=== PATIENT | male | born 1950 | race Caucasian/White ===

== ENCOUNTER 2019-01-02 19:43 | Inpatient (IN) | payer MEDICARE, MEDICAID ==
[~2019-01-02 19:43] MED LIST: ISOVUE-370 76%-LOCM 1 ML ONE
[2019-01-02 20:35] LABS: Hemoglobin 15.6 g/dL (14.0-18.0); Mean Corpuscular HGB CONC 33.6 g/dL (32.0-36.0); Mean Corpuscular Hemoglobin 30.8 pg (27.0-31.0); Mean Corpuscular Volume 91.6 fL (78.0-98.0); Mean Platelet Volume 9.2 fL (7.4-10.4); Platelet Count 261 thou/uL (130-400); RBC Distribution Width 12.5 % (11.5-14.5); Red Blood Cell (RBC) Count 5.05 mill/uL (4.70-6.10); White Blood Cell (WBC) Count 21.4 thou/uL (4.8-10.8)
[2019-01-02 20:43] LABS: ALT (SGPT) 31 U/L (8-55); AST (SGOT) 43 U/L (5-34); Albumin 3.7 g/dL (3.4-4.8); Alkaline Phosphatase 79 U/L (40-150); Anion Gap 17 mmol/L (10-20); BUN (Urea Nitrogen) 7 mg/dL (8.4-25.7); Bilirubin, Total 0.8 mg/dL (0.2-1.2); Calc. Creatinine Clearance 0 mL/min (70-130); Calcium 10.2 mg/dL (7.8-10.44); Carbon Dioxide 26 mmol/L (23-31); Chloride 95 mmol/L (98-107); Estimated GFR-MDRD Greater than 90; Globulin 3.7 g/dL (2.4-3.5); Glucose 132 mg/dL (80-115); Lipase 36 U/L (8-78); Potassium 3.2 mmol/L (3.5-5.1); Protein, Total 7.4 g/dL (5.8-8.1); Sodium 135 mmol/L (136-145)
[2019-01-02 20:44] LABS: Acetaminophen Less than 6.0 mcg/mL (10.0-30.0); Alcohol Less than 10 mg/dL (Less than 10); CK (CPK) 18 U/L (30-200); Magnesium 1.6 mg/dL (1.6-2.6); Salicylate Less than 8.0 mg/dL (15.0-30.0)
[2019-01-02 20:45] LABS: Band 5 % (5-11); Lymphocytes 13 % (21-51); MDiff Complete? YES; Monocytes 6 % (0-10); Neutrophil 76 % (42-75); Platelet Morphology Comment Appears Adequate
[2019-01-02 21:05] LABS: CKMB 0.6 ng/mL (0-6.6)
--- NOTE | 2019-01-02 21:27 | CT ---
CT angiogram of the head CT angiogram of the neck: 01/02/2019 COMPARISON: None HISTORY: Altered mental status TECHNIQUE: Axial CT imaging at 5 mm intervals from vertex through skull base without contrast. Axial CT imaging then obtained with IV contrast at 1.25 mm intervals from the vertex through the lung apices with IV contrast using CT angiogram protocol with coronal and sagittal 3-D reformatted imaging FINDINGS: Noncontrast enhanced head CT demonstrates no intracranial hemorrhage, midline shift, mass e ffect, or ventricular enlargement. The visualized paranasal sinuses and mastoid air cells demonstrate no acute findings. Old medial orbital wall fracture noted on the left. The visualized lung apices appear unremarkable. There is atherosclerotic calcification of the aortic arch. There is extensive atherosclerotic calcifi cation of the left subclavian artery. There is mild/moderate stenosis at the origin of the left subclavian artery and at the origin of bilateral vertebral arteries, left greater than right. There i s evidence for a calcification at the origin of the innominate artery, right subclavian artery, and right common carotid artery with no associated hemodynamically significant stenosis. Origin of the le ft common carotid artery appears unremarkable. The common carotid artery, external carotid artery, and internal carotid artery are patent bilaterall y. There is prominent partially calcified plaque involving the proximal left internal carotid artery. On the basis of NASCET criteria, there is no hemodynamically significant stenosis seen involving the internal carotid artery or common carotid artery on the left. Scattered calcified plaque noted within the right common carotid artery. On the basis of NASCET criteria there is no hemodynamically significant stenosis involving the right common carotid artery, external carotid artery, or internal carotid artery. There is calcified plaque within the distal vertebral artery bilaterally. There is multifocal moderat e stenosis involving the distal most aspect of the right vertebral artery. Bilateral vertebral arteries are patent. The retroantral fat and parapharyngeal fat appears clear bilaterally. The parotid and submandibular g lands are unremarkable bilaterally. Limited assessment of the aerodigestive tract appears unremarkable. No lymphadenopathy is evident within the neck. The basilar artery is patent and demonstrates multiple areas of mild stenosis. Branches of the basila r artery are patent. Scattered areas of stenosis noted within bilateral posterior cerebral arteries. There is no evidence for saccular aneurysm or vascular occlusion involving the posterior ci rculation. There is significant atherosclerotic calcification of the cavernous carotid arteries bilaterally. The M1 segment is patent bilaterally as is the MCA bifurcation. The A1 segment and distal GI branches appear patent. Distal MCA branches appear patent as well. No saccular aneurysm or central arterial oc clusion is seen involving the anterior circulation. Review of the osseous structures of the head and neck demonstrate scattered degenerative changes with in the cervical spine including multilevel disc space narrowing and multilevel facet hypertrophy. No worrisome lytic or blastic bone lesions. IMPRESSION: No intracranial hemorrhage. Atherosclerotic disease within the head and neck as detailed above.
[2019-01-02 22:33] LABS: Bilirubin Negative (Negative); Blood, Urine Negative (Negative); Clarity Clear (Clear); Glucose, Urine (Dipstick) Normal (Negative); Leukocyte Negative Leu/uL (Negative); Nitrite Negative (Negative); Protein, Urine (Dipstick) Negative (Neg-Trace); Urobilinogen Normal mg/dL (Less than 2)
[2019-01-02 22:34] LABS: Amphetamine Not Detected (NotDetected); Barbiturates Screen Not Detected (NotDetected); Benzodiazepine Screen Not Detected (NotDetected); Cocaine Metabolite Screen Not Detected (NotDetected); Medtox Reader # READER 4; Methadone Not Detected (NotDetected); Methamphetamine Not Detected (NotDetected); Opiate Screen Not Detected (NotDetected); Phencyclidine (PCP) Not Detected (NotDetected); THC/Cannabinoid Screen Not Detected (NotDetected); Tricyclic Screen Not Detected (NotDetected)
[2019-01-02 22:35] LABS: Medtox Control Line Valid? VALID (VALID); Oxycodone Screen Not Detected (NotDetected)
[2019-01-02] MEDS ORDERED: cefTRIAXone\\ROCEPHIN 2 GM VIAL ONE (23:07)
[2019-01-02] MEDS ORDERED: Aspirin Chewable 81 MG TAB ONE ×2 (23:29)
[2019-01-02] MEDS ORDERED: Vancomycin HCl 1.5 GM in Sodium Chloride 0.9% 250 ML 300 ML IVPB SCH (23:45)
[2019-01-02 23:53] LABS: Troponin I 0.022 ng/mL (< 0.028)
[2019-01-03] MEDS ORDERED: Acetaminophen 325 MG TAB PO PRN (01:31)
[2019-01-03 02:37] LABS: Troponin I 0.023 ng/mL (< 0.028)
[2019-01-03] MEDS ORDERED: traMADol HCl 50 MG TAB PO PRN (07:48)
[2019-01-03] MEDS ORDERED: HYDROcodone/Acetaminophen 5/325 mg Tablet PO PRN (07:50)
[2019-01-03] MEDS ORDERED: Ondansetron PF 4 MG/2 ML Vial IVP PRN (07:50)
[2019-01-03] MEDS ORDERED: Calcium Carbonate 500 MG ChewTAB PO PRN (07:50)
[2019-01-03] MEDS ORDERED: Ondansetron ODT 4 MG TAB PO PRN (07:50)
[2019-01-03] MEDS ORDERED: HYDROcodone/Acetaminophen 7.5/325 mg Tablet PO PRN (07:50)
[2019-01-03] MEDS ORDERED: Docusate 100 MG CAP PO PRN (08:00)
[2019-01-03] MEDS ORDERED: diphenhydrAMINE 25 MG CAP PO PRN (08:00)
[2019-01-03] MEDS ORDERED: Benzonatate 100 MG CAP PO PRN (08:00)
[2019-01-03] MEDS: Famotidine 20 MG TAB PO SCH ×2 (08:43→20:20)
[2019-01-03] MEDS: Aspirin 81 mg Enteric Coated Tablet PO SCH (08:43)
[2019-01-03] MEDS: Montelukast Sodium 10 mg Tablet PO SCH (08:43)
[2019-01-03] MEDS: Lisinopril 20 MG TAB PO SCH (08:43)
[2019-01-03] MEDS ORDERED: Famotidine 20 MG TAB PO SCH (09:00)
[2019-01-03] MEDS ORDERED: Gabapentin 300 MG CAP PO SCH (09:00)
[2019-01-03] MEDS ORDERED: cloNIDine 0.2mg/24 Hour PATCH TD SCH (09:00)
--- NOTE | 2019-01-03 09:17 | RAD ---
EXAM: Portable chest PROVIDED CLINICAL HISTORY: Chest pain COMPARISON: 07/18/2007 FINDINGS: Cardiac and mediastinal silhouette is unchanged in appearance. Median sternotomy changes and vascular calcification are seen. No focal consolidation, pleural fluid or pneumothorax evident. IMPRESSION: No evidence for an acute cardiopulmonary process.
--- NOTE | 2019-01-03 09:41 | CON ---
DATE OF CONSULTATION: 01/03/2019 CONSULTING PHYSICIAN: Hospitalist Service. IMPRESSION: The patient appears to have dementia without any evidence of a delirium. PLAN: 1. B1, B6, and B12 levels. 2. CT scan of the brain. 3. Aricept 5 mg per day. 4. Determine whether penitentiary placement is necessary. HISTORY OF PRESENT ILLNESS: Mr. Milligan is a 68-year-old man, who was brought to the emergency room last night by his family. In reading the ER records, there was reported complaints of headaches, abdominal pain, mental status changes for over a month. His workup in the ER included a CT angiogram, which showed some scattered areas of mild stenosis, but nothing significant. His white count was 21.4 with 76 neutrophils and 5% bands. He is not febrile. He was admitted for further evaluation. There is no family here at this point to give any history and questioning him. He is without any complaints of headache, chest pain, abdominal pain, or any other ongoing problem. He was not aware that he was in the hospital. He thought he was in some sort of courthouse. Did not know the month or year, did not know who the president was. PAST HISTORY: Otherwise, unknown. FAMILY HISTORY: Unknown. ALLERGIES: NONE REPORTED. SOCIAL HISTORY: No reported alcohol use. REVIEW OF SYSTEMS: Ten-system review of systems by the patient's report is unremarkable. PHYSICAL EXAMINATION: VITAL SIGNS: Blood pressure 195/88, pulse 75, respirations 16, and temperature 98.2. HEENT: Pupils are equal. Conjunctivae are clear. Oropharynx clear. Cranium; normocephalic and atraumatic. NECK: Supple. No lymphadenopathy. EXTREMITIES: There is some few minor scratches and bruising, but nothing remarkable. NEUROLOGIC: He is alert and cooperative. He follows commands appropriately. His speech is fluent and clear. There are no cranial nerve deficits. He had good strength bilaterally. There is no fix or drift. There is no tremor or asterixis. Sensation was intact to touch. No abnormal movements are seen. Gait is not tested. SUMMARY: This is a 68-year-old man, who appears only oriented to person. He has no evidence of delirium. I suspect that this is primarily a dementia. I suspect the family may be looking for placement and that was the reason behind them dropping him off in the emergency room last night. His workup thus far has been unremarkable. Job ID: [id number]
[2019-01-03] MEDS: Multivitamins, Adult 10 ML, Folic Acid 1 MG, Thiamine HCl 100 MG in Dextrose 5 %-0.45 %... IV SCH (10:15)
[2019-01-03] MEDS ORDERED: Dextrose 5% in Water 1,000 ML IV PRN (10:21)
[2019-01-03] MEDS ORDERED: Dextrose 50% Abboject 50 ML SYRINGE SLOW IVP PRN (10:21)
[2019-01-03] MEDS ORDERED: HumaLOG 300 UNITS/3 ML VIAL SC PRN (10:21)
--- NOTE | 2019-01-03 10:57 | HP ---
CHIEF COMPLAINT: Altered mental status. HISTORY OF PRESENT ILLNESS: Mr. Milligan is a 68-year-old gentleman with past medical history of diabetes, hypertension, hyperlipidemia, and alcohol use, who presents with altered mental status. At the time of my interview, the patient knows his name, he knows that he lives in [place], [place], however, he is not sure of any other details of his medical history or accurately portray what has been happening in the past several months. The patient currently tells me that he believes he is in the [facility], he believes I am the [place] despite dripping dressed in white coat and explicitly telling him that I am his physician. The patient states that the year is 1914, though he does admit that maybe inaccurate. The patient states that he used to drink a lot of beer, though he states he does not drink beer anymore. Previous report was that the patient quit drinking 1 month ago. The patient tells me that he believes he quit drinking 2 or 3 years ago. The patient states that he used to smoke cigarettes, though he quit that also. The patient's short-term recall and memory is very diminished and is unable to recall simple fax like again stating that I am his physician and then less than 5 minutes later, asking him where he is and what role I have and he states that I am the [place] of the correction. No family available at bedside for additional history at this time. PAST MEDICAL HISTORY: 1. Diabetes mellitus. 2. Hypertension. 3. Hyperlipidemia. 4. EtOH use. REVIEW OF SYSTEMS: A 10-point review of systems was conducted and negative aside from what mentioned in history of present illness. MEDICATIONS: 1. Tramadol 50 mg one tablet p.o. t.i.d. p.r.n. pain. 2. Metformin 500 mg one tablet p.o. b.i.d. 3. Glipizide 10 mg one tablet p.o. daily. 4. Clonidine transdermal patch 0.2 mg transdermal q.7 days. 5. Ranitidine 150 mg one tablet p.o. b.i.d. 6. Singulair 10 mg one tablet p.o. daily. 7. Lisinopril 20 mg one tablet p.o. daily. 8. Gabapentin 600 mg one tablet p.o. b.i.d. 9. Atorvastatin 20 mg one tablet p.o. daily. ALLERGIES: NO KNOWN DRUG ALLERGIES. PHYSICAL EXAMINATION: VITAL SIGNS: Temperature 98.0, pulse 63, blood pressure 207/94, respirations 14, and O2 saturation 95% on room air. HEENT: Head is normocephalic and atraumatic. Pupils are equally round and reactive to light and accommodation. There is no appreciated erythema or exudates on the tonsils. GENERAL APPEARANCE: The patient is well developed. He is cooperative. The patient is in no acute cardiopulmonary distress. CARDIAC: S1 and S2 present. No appreciated murmurs, rubs, or gallops. There is no peripheral edema. EXTREMITIES: Warm and well perfused. LUNGS: Clear to auscultation bilaterally without appreciated wheezes, rales, or rhonchi. ABDOMEN: Soft, nontender, and nondistended without focal guarding or rigidity. No appreciated hepatosplenomegaly. No abdominal bruit. MUSCULOSKELETAL: Adequate alignment of the spine. Range of motion in the spine and extremities are grossly intact. There is no joint erythema or tenderness. BACK: Examination of the spine reveals no obvious deformity. Spinal symmetry is present. There is mild tenderness to palpation in the lumbar spine. EXTREMITIES: No significant deformity or joint abnormality. No lower extremity edema. No upper extremity edema. Peripheral pulses are intact and symmetric. NEUROLOGIC: Cranial nerves II through XII are grossly intact. Strength and sensation are symmetric and intact throughout. Cerebellar testing was deferred. SKIN: Skin is normal color, texture, and turgor. There are no appreciated lesions, rashes, or eruptions. PSYCHIATRIC: The patient is alert to self and knows that he is in [place]. The patient does not know, where he currently is. The patient does not know the situation. The patient's 5-minute recall is absent. The patient denies auditory or visual hallucinations. LABORATORY DATA: WBC 21.4, RBC 5.05, hemoglobin 15.6, hematocrit 46.2, MCV 91.6, and platelets 261. Sodium 135, potassium 3.2, chloride 95, carbon dioxide 26, anion gap 17, BUN 7, creatinine 0.82, estimated GFR greater than 90, glucose 132, calcium 10.2, magnesium 1.6, total bilirubin 0.8, AST 43, ALT 31, and alkaline phosphatase 79. Creatine kinase 18. Troponin 0.022. Serum total protein 7.4, albumin 3.7, globulin 3.7, and lipase 36. TSH 1.2. Urinalysis; urine color light yellow, urine clarity clear, urine pH 5.5, urine specific gravity 1.011, urine protein negative, urine ketones 20, urine blood negative, urine nitrite negative, urine bilirubin negative, urine urobilinogen normal, urine leukocyte esterase negative. Salicylates less than 8.0. Urine opiates negative. Urine oxycodone negative. Urine methadone negative. Urine propoxyphene negative. Acetaminophen less than 6.0. Urine barbiturate screen negative. Urine tricyclic screen negative. Urine PCP negative. Urine amphetamines negative. Urine methamphetamines negative. Urine benzodiazepines negative. Urine cocaine negative. Urine cannabinoids negative. Plasma alcohol less than 10. RADIOGRAPHIC IMAGIN. CT [place] angio with contrast; impression, no intracranial hemorrhage. Atherosclerotic disease within the head and neck as detailed above - please see full report for full details. 2. Chest x-ray; impression, no evidence of acute cardiopulmonary process. ASSESSMENT AND PLAN: 1. Altered mental status with acute confusion/delirium. The patient had a CT of the head that was negative for acute intracranial process. Neurology consultation requested for further recommendations. The patient will have MRI of the brain, echocardiogram, and further metabolic workup. A CVA may present with altered mental status. However, the patient does lack focal neurologic deficits on physical exam. With the patient's history of alcohol use, possibility for Wernicke-Korsakoff syndrome is present. We will place the patient on a banana bag. The patient will need vitamin replacement. We will attempt to further contact family. The patient states that his daughter helps take care of him. Report of the patient's alcohol cessation greater than 1 month ago. Alcohol withdrawal complications are less likely at this time being greater than 1 month since any alcohol was consumed. 2. Leukocytosis - there is no obvious source of infection at this time. The patient has a clean chest x-ray without focal pneumonia. Urinalysis is negative for urinary tract infection. There are no obvious skin lesions or cellulitis. The patient did receive broad-spectrum antibiotics in the emergency department. The patient had blood cultures. As there is no obvious source of infection, we will hold further antibiotics at this time and further assess as the patient progresses. The patient is nontoxic and does not appear septic at this time and leukocytosis may be stress reactive. 3. Malignant hypertension with blood pressure of 207 systolic on arrival. The patient started on home medications including clonidine patch and amlodipine. P.r.n. medications added to help control blood pressure. We will adjust blood pressure medications daily until hypertension is normalized. 4. Diabetes mellitus. We will treat with insulin sliding scale and hold oral diabetic medications at this time as the patient has received contrast. He will not have metformin while inpatient for 48 hours. 5. Hyperlipidemia. 6. History of alcohol use. 7. Neuropathic pain. Job ID: [id number]
--- NOTE | 2019-01-03 12:11 | MRI ---
EXAM: MRI Brain WO Con PROVIDED CLINICAL HISTORY: Altered mental status COMPARISON: 12/23/2001 FINDINGS: Evaluation is limited by patient motion. The ventricular system appears normal in size and morphology . There is no evidence for intracranial hemorrhage. Linear hypointensity on the gradient sequence in the region of the left temporoparietal eller matter adjacent to the occipital horn of the lateral v entricle presumably reflects laminar necrosis. Conspicuous chronic microvascular ischemic changes are seen involving the cerebral white matter. The flow voids within the major intracranial vessels ap pear grossly preserved. There is no evidence for restricted diffusion to suggest recent infarction. The extracranial soft tissues and calvarial marrow signal. No significant abnormality. IMPRESSION: No evidence for an acute intracranial abnormality.
[2019-01-03] MEDS: Atorvastatin Calcium 20 MG TAB PO SCH (20:20)
[2019-01-04] MEDS ORDERED: diphenhydrAMINE 50 MG/ML VIAL IVP SCH (01:20)
[2019-01-04] MEDS ORDERED: Lorazepam 2 MG/ML VIAL SLOW IVP SCH (01:20)
[2019-01-04] MEDS ORDERED: diphenhydrAMINE 50 MG/ML VIAL ONE (01:43)
[2019-01-04] MEDS ORDERED: Lorazepam 2 MG/ML VIAL ONE (01:43)
[2019-01-04 05:25] LABS: #Eosinphils 0.2 thou/uL (0.0-0.7); #Lymphocytes 2.9 thou/uL (1.20-3.40); #Monocytes 1.6 thou/uL (0.11-0.59); #Neutrophils 11.5 thou/uL (1.40-6.50); %Basophils 0.3 % (0.0-1.0); %Lymphocytes 17.7 % (21.0-51.0); %Monocytes 9.7 % (0.0-10.0); %Neutrophils 71.3 % (42.0-75.0); Hemoglobin 14.3 g/dL (14.0-18.0); Mean Corpuscular HGB CONC 33.9 g/dL (32.0-36.0); Mean Corpuscular Hemoglobin 30.8 pg (27.0-31.0); Mean Corpuscular Volume 90.8 fL (78.0-98.0); Mean Platelet Volume 9.1 fL (7.4-10.4); Platelet Count 241 thou/uL (130-400); RBC Distribution Width 12.4 % (11.5-14.5); Red Blood Cell (RBC) Count 4.63 mill/uL (4.70-6.10); White Blood Cell (WBC) Count 16.1 thou/uL (4.8-10.8)
[2019-01-04 05:27] LABS: Anion Gap 13 mmol/L (10-20); BUN (Urea Nitrogen) 6 mg/dL (8.4-25.7); Calc. Creatinine Clearance 116 mL/min (70-130); Calcium 9.2 mg/dL (7.8-10.44); Carbon Dioxide 29 mmol/L (23-31); Chloride 98 mmol/L (98-107); Estimated GFR-MDRD Greater than 90; Glucose 156 mg/dL (80-115); Sodium 137 mmol/L (136-145)
[2019-01-04 05:35] LABS: Potassium 2.7 mmol/L (3.5-5.1)
[2019-01-04] MEDS ORDERED: Ziprasidone 20 MG CAP ONE (06:12)
[2019-01-04] MEDS ORDERED: Ziprasidone 20 MG VIAL ONE (06:13)
[2019-01-04] MEDS ORDERED: Sterile Water 10 ML VIAL FS PRN (06:17)
[2019-01-04] MEDS ORDERED: Ziprasidone 20 MG VIAL IM SCH (06:30)
[2019-01-04] MEDS ORDERED: Potassium Chloride 40 MEQ in Sodium Chloride 0.9% 250 ML 250 ML IVPB SCH (06:30)
[2019-01-04] MEDS: Lisinopril 20 MG TAB PO SCH (08:37)
[2019-01-04] MEDS: Famotidine 20 MG TAB PO SCH ×2 (08:37→20:51)
[2019-01-04] MEDS: Montelukast Sodium 10 mg Tablet PO SCH (08:38)
[2019-01-04] MEDS: Aspirin 81 mg Enteric Coated Tablet PO SCH (08:38)
[2019-01-04] MEDS ORDERED: Potassium Chloride 20 MEQ TAB PO SCH (10:00)
--- NOTE | 2019-01-04 10:54 | CT ---
Head CT without contrast 01/04/2019: COMPARISON: 07/31/2012 HISTORY: Altered mental status TECHNIQUE: Axial CT imaging at 5 mm intervals from vertex through skull base without contrast FINDINGS: The imaged paranasal sinuses and mastoid air cells demonstrate no acute findings. There is atherosclerotic calcification of the cavernous carotid arteries and distal vertebral arterie s. No acute osseous abnormality is noted. There is mild diffuse cerebral volume loss. There is periventricular white matter hypodensity, eviden ce of small vessel disease. 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 IMPRESSION: Stable head CT as detailed above. No intracranial hemorrhage.
[2019-01-04] MEDS: HumaLOG 300 UNITS/3 ML VIAL SC PRN ×2 (11:18→18:07)
[2019-01-04] MEDS: Multivitamins, Adult 10 ML, Folic Acid 1 MG, Thiamine HCl 100 MG in Dextrose 5 %-0.45 %... IV SCH (11:19)
[2019-01-04] MEDS ORDERED: Acetaminophen 325 MG TAB PO PRN (11:57)
[2019-01-04] MEDS ORDERED: cefTRIAXone Sodium 2 MG in Syringe 0 ML IVPB SCH (12:30)
[2019-01-04] MEDS ORDERED: cloNIDine 0.3mg/24 Hour PATCH TD SCH (13:00)
[2019-01-04 14:13] VITALS: BMI 23.4
[2019-01-04] MEDS: 1/2 NS w/KCL 20 mEq 1,000 ML IV SCH (14:18)
--- NOTE | 2019-01-04 15:11 | PDOC.HOSPP ---
- Subjective Subjective: Seen and examined. Patient is only oriented to self. He believes we're of the [place]. I believe the patient is confabulation secondary to Wernicke Korsakoff syndrome. No alcohol in greater than 1 month. He does not know the year. He does on the situation. Patient remains agitated and impulsive frequently trying to get out of bed. Patient has required symptomatic medications to keep him calm. I had a long discussion with the patient's daughter over the phone, time was given to ask questions, many questions are asked and all questions were answered in detail. Patient will need long-term placement. Patient does not have easily identifiable source of infection. Initial WBC count of 21,000 has down trended to 16,000 without antibiotic therapy. However he does now have a low-grade fever of 100.1. I will start the patient on empiric antibiotic coverage. Will repeat urine analysis. No obvious skin lesions. Blood cultures and urine cultures are negative for growth at this time. - Objective Vital Signs & Weight: Vital Signs (12 hours) Temp Pulse Pulse Pulse Pulse Resp BP 01/04/19 12:04 100.1 F H 92 16 01/04/19 10:35 104 H 107 H 98 01/04/19 08:43 97 94 01/04/19 08:37 162/93 H 01/04/19 08:00 99.3 F 96 18 01/04/19 04:00 97.3 F L 72 16 BP BP BP BP Pulse Ox 01/04/19 12:04 177/87 H 94 L 01/04/19 10:35 210/99 H 132/90 187/92 H 01/04/19 08:43 162/93 H 214/105 H 01/04/19 08:37 01/04/19 08:00 162/93 H 98 01/04/19 04:00 167/82 H 92 L Weight Admit Weight 181 lb Weight 172 lb 11.2 oz I&O: 01/03/19 01/04/19 01/05/19 06:59 06:59 06:59 Intake Total 1367 300 Balance 1367 300 Result Diagrams: 01/04/19 04:56 01/04/19 04:56 Additional Labs: Accuchecks 01/04/19 01/04/19 01/03/19 10:44 05:55 20:28 POC Glucose 191 H 157 H 162 H 01/03/19 16:35 POC Glucose 191 H Radiology Reviewed by me: Yes (MRI brain) Hospitalist ROS - Review of Systems All other systems reviewed; all pertinent +/- noted in HPI/Subj - Medication Medications: Active Medications Generic Name Dose Route Start Last Admin Trade Name Freq PRN Reason Stop Dose Admin Acetaminophen 325 mg 01/04/19 11:57 01/04/19 12:49 Tylenol PO 325 mg Q4H PRN Administration Headache/Fever or Pain Aspirin 81 mg 01/03/19 09:00 01/04/19 08:38 Ecotrin PO 81 mg DAILY ALEJANDRO Administration Atorvastatin Calcium 20 mg 01/03/19 21:00 01/03/19 20:20 Lipitor PO 20 mg HS ALEJANDRO Administration Clonidine 0.3 mg 01/04/19 13:00 01/04/19 12:50 [id number]-Tlr-7 TD 0.3 mg Q7D@1300 ALEJANDRO Administration Famotidine 20 mg 01/03/19 09:00 01/04/19 08:37 Pepcid PO 20 mg BID ALEJANDRO Administration Potassium Chloride/Sodium Chloride 1,000 mls @ 50 mls/hr 01/04/19 12:30 01/04 14:18 1/2 Ns W/Kcl 20 Meq IV 1,000 mls .Q20H ALEJANDRO Administration Insulin Human Lispro 0 units 01/03/19 10:21 01/04/19 11:18 Humalog SC 2 unit .MILD SLIDING SCALE PRN Administration Mild Correctional Scale Lisinopril 20 mg 01/03/19 09:00 01/04/19 08:37 Zestril PO 20 mg DAILY ALEJANDRO Administration Montelukast Sodium 10 mg 01/03/19 09:00 01/04/19 08:38 Singulair PO 10 mg DAILY ALEJANDRO Administration - Exam General Appearance: NAD Eye: PERRL, anicteric sclera ENT: no oropharyngeal lesions, moist mucosa Neck: supple, symmetric, no lymphadenopathy Heart: no murmur, no gallops, no rubs Respiratory: no wheezes, no rales, no ronchi Gastrointestinal: soft, non-tender, non-distended, normal bowel sounds, no guarding Extremities: no edema Skin: no lesions, no rashes Neurological: cranial nerve grossly intact, normal sensation to touch Musculoskeletal: generalized weakness Psychiatric: oriented to person. 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 Patient with past history of greater than four beers per day. Folic acid thiamine had banana bag on admission replace electrolytes as needed Patient with low-grade fever, WBC count down trending without continuation of antibiotics. We will start empiric antibiotics to see if there is any improvement to patient's mental status. There is no obvious source of infection at this time with a negative urine analysis, clear chest x-ray. Urine and blood cultures are negative for growth to date. Long-term placement will likely be needed Case discussed at length with patient's daughter who is happy with plan of care. Patient's daughter is primary decision-maker and states that her father told her he would like to be a do not resuscitate and do not intubate, we will honor patient's families wishes and the patient's wishes at this time and change categorization status to do not resuscitate and do not intubate.
[2019-01-04] MEDS: Haloperidol Lactate 5 MG/ML VIAL IM PRN (15:28)
[2019-01-04 19:09] LABS: Bilirubin Negative (Negative); Blood, Urine Negative (Negative); Clarity Clear (Clear); Glucose, Urine (Dipstick) Normal (Negative); Leukocyte Negative Leu/uL (Negative); Mucous/LPF Rare LPF (<2+); Nitrite Negative (Negative); Protein, Urine (Dipstick) Negative (Neg-Trace); RBC/HPF 0-3 HPF (0-3); Squamous Epithelial 0-3 HPF (0-3); Urobilinogen Normal mg/dL (Less than 2); WBC/HPF 0-3 HPF (0-3)
[2019-01-04 19:22] LABS: Bacteria/HPF None Seen HPF (None Seen)
[2019-01-04 19:23] LABS: Urine Culture Reflex No No
[2019-01-04] MEDS: Donepezil HCl 5 MG TAB PO SCH (20:51)
[2019-01-04] MEDS: Atorvastatin Calcium 20 MG TAB PO SCH (20:51)
[2019-01-04] MEDS: hydrALAZINE 20 MG/ML VIAL SLOW IVP PRN (22:20)
[2019-01-05] MEDS: Labetalol HCl 100 MG/20 ML VIAL SLOW IVP PRN ×4 (00:19→20:11)
[2019-01-05] MEDS ORDERED: Sterile Water 10 ML VIAL FS PRN (01:21)
[2019-01-05] MEDS ORDERED: Ziprasidone 20 MG VIAL IM SCH (01:30)
[2019-01-05] MEDS: HumaLOG 300 UNITS/3 ML VIAL SC PRN ×3 (07:46→17:21)
[2019-01-05] MEDS: Thiamine 100 MG TAB PO SCH (08:44)
[2019-01-05] MEDS: Montelukast Sodium 10 mg Tablet PO SCH (08:44)
[2019-01-05] MEDS: Carvedilol 3.125 MG TAB PO SCH ×2 (08:44→17:15)
[2019-01-05] MEDS: Folic Acid 1 MG TAB PO SCH (08:44)
[2019-01-05] MEDS: Lisinopril 20 MG TAB PO SCH (08:44)
[2019-01-05] MEDS: Famotidine 20 MG TAB PO SCH ×2 (08:44→20:10)
[2019-01-05] MEDS: Aspirin 81 mg Enteric Coated Tablet PO SCH (08:44)
[2019-01-05] MEDS: hydrALAZINE 20 MG/ML VIAL SLOW IVP PRN (10:03)
[2019-01-05] MEDS: 1/2 NS w/KCL 20 mEq 1,000 ML IV SCH (10:05)
[2019-01-05] MEDS ORDERED: guaiFENesin/DM ER PO PRN (11:13)
--- NOTE | 2019-01-05 11:16 | PDOC.HOSPP ---
- Subjective Subjective: Patient seen and examined. Patient does seem moral alert and awake today. Patient knows his name. Today patient thinks he we are at "[place] in the [facility]". Patient does not know the year. Patient does not know the situation. Patient agitated and impulsive trying to get out of bed frequently. Blood pressure remains elevated, adding medications and daily adjustments as needed. Patient still requiring symptomatic medications for agitation and a sitter at bedside. Increase nighttime sedating medications to keep the patient calm. Family at bedside, questions were asked, all answered in detail. - Objective Vital Signs & Weight: Vital Signs (12 hours) Temp Pulse Resp BP BP Pulse Ox 01/05/19 10:03 85 210/101 H 01/05/19 08:44 186/97 H 01/05/19 08:40 99.6 F 99 18 186/97 H 94 L 01/05/19 06:31 72 181/91 H 01/05/19 05:24 90 189/92 H 01/05/19 03:53 99.2 F 98 18 200/98 H 91 L 01/05/19 00:19 107 H 190/100 H 01/05/19 00:00 99.4 F 107 H 20 190/100 H 96 Weight Admit Weight 181 lb Weight 172 lb 11.2 oz I&O: 01/04/19 01/05/19 01/06/19 06:59 06:59 06:59 Intake Total 1367 2870 Output Total 750 Balance 1367 2120 Result Diagrams: 01/04/19 04:56 01/04/19 04:56 Additional Labs: Accuchecks 01/05/19 01/04/19 01/04/19 06:27 19:54 16:46 POC Glucose 184 H 141 H 178 H Radiology Reviewed by me: Yes (Echocardiogram) Hospitalist ROS - Review of Systems All other systems reviewed; all pertinent +/- noted in HPI/Subj - Medication Medications: Active Medications Generic Name Dose Route Start Last Admin Trade Name Freq PRN Reason Stop Dose Admin Acetaminophen 325 mg 01/04/19 11:57 01/04/19 12:49 Tylenol PO 325 mg Q4H PRN Administration Headache/Fever or Pain Aspirin 81 mg 01/03/19 09:00 01/05/19 08:44 Ecotrin PO 81 mg DAILY ALEJANDRO Administration Atorvastatin Calcium 20 mg 01/03/19 21:00 01/04/19 20:51 Lipitor PO 20 mg HS ALEJANDRO Administration Carvedilol 3.125 mg 01/05/19 08:00 01/05/19 08:44 Coreg PO 3.125 mg BID-WM ALEJANDRO Administration Clonidine 0.3 mg 01/04/19 13:00 01/04/19 12:50 [id number] TD 0.3 mg Q7D@1300 ALEJANDRO Administration Donepezil HCl 5 mg 01/04/19 21:00 01/04/19 20:51 Aricept PO 5 mg HS ALEJANDRO Administration Famotidine 20 mg 01/03/19 09:00 01/05/19 08:44 Pepcid PO 20 mg BID ALEJANDRO Administration Folic Acid 1 mg 01/05/19 09:00 01/05/19 08:44 Folvite PO 1 mg DAILY ALEJANDRO Administration Haloperidol Lactate 5 mg 01/04/19 12:23 01/04/19 15:28 Haldol IM 5 mg Q4H PRN Administration Agitation Hydralazine HCl 10 mg 01/03/19 08:00 01/05/19 10:03 Apresoline SLOW IVP 10 mg Q4H PRN Administration Hypertension SBP>/=180 Potassium Chloride/Sodium Chloride 1,000 mls @ 50 mls/hr 01/04/19 12:30 01/05 10:05 1/2 Ns W/Kcl 20 Meq IV 1,000 mls .Q20H ALEJANDRO Administration Insulin Human Lispro 0 units 01/03/19 10:21 01/05/19 07:46 Humalog SC 2 unit .MILD SLIDING SCALE PRN Administration Mild Correctional Scale Labetalol HCl 10 mg 01/04/19 12:27 01/05/19 05:24 Normodyne SLOW IVP 10 mg Q4H PRN Administration SBP Greater Than 180 Lisinopril 20 mg 01/03/19 09:00 01/05/19 08:44 Zestril PO 20 mg DAILY ALEJANDRO Administration Montelukast Sodium 10 mg 01/03/19 09:00 01/05/19 08:44 Singulair PO 10 mg DAILY ALEJANDRO Administration Thiamine HCl 100 mg 01/05/19 09:00 01/05/19 08:44 Thiamine PO 100 mg DAILY ALEJANDRO Administration - Exam General Appearance: NAD, awake alert Eye: PERRL, anicteric sclera ENT: normocephalic atraumatic, moist mucosa Neck: supple, symmetric, no lymphadenopathy Heart: no murmur, no gallops, no rubs Respiratory: no wheezes, no rales, no ronchi Gastrointestinal: soft, non-tender, non-distended, no guarding, no rigidity Extremities: no edema Skin: no lesions, no rashes Skin - other findings: Rhinophyma Neurological: cranial nerve grossly intact, normal sensation to touch, no focal deficits Psychiatric: oriented to person, not oriented. 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 Patient with past history of greater than four beers per day. Folic acid daily thiamine daily Received banana bag on admission replace electrolytes as needed Patient with low-grade fever, WBC count down trending without continuation of antibiotics. We will start empiric antibiotics to see if there is any improvement to patient's mental status. There is no obvious source of infection at this time with a negative urine analysis, clear chest x-ray. Urine and blood cultures are negative for growth to date. Developped cough on 01/05/19 - early bronchitis possible Long-term placement will likely be needed Case discussed at length with patient's daughter who is happy with plan of care. Patient's daughter is primary decision-maker and states that her father told her he would like to be a do not resuscitate and do not intubate, we will honor patient's families wishes and the patient's wishes at this time and change categorization status to do not resuscitate and do not intubate.
[2019-01-05] MEDS ORDERED: cefTRIAXone Sodium 2 MG in Syringe 0 ML IVPB SCH (11:30)
[2019-01-05 12:11] LABS: Hemoglobin 15.1 g/dL (14.0-18.0); Mean Corpuscular HGB CONC 33.1 g/dL (32.0-36.0); Mean Corpuscular Hemoglobin 29.8 pg (27.0-31.0); Mean Corpuscular Volume 90.1 fL (78.0-98.0); Mean Platelet Volume 9.2 fL (7.4-10.4); Platelet Count 253 thou/uL (130-400); RBC Distribution Width 12.5 % (11.5-14.5); Red Blood Cell (RBC) Count 5.07 mill/uL (4.70-6.10); White Blood Cell (WBC) Count 20.3 thou/uL (4.8-10.8)
[2019-01-05] MEDS: cefTRIAXone\\ROCEPHIN 2 GM in Sodium Chloride 0.9% 100 ML IVPB SCH (12:14)
[2019-01-05 12:29] LABS: Anion Gap 14 mmol/L (10-20); BUN (Urea Nitrogen) 5 mg/dL (8.4-25.7); Calc. Creatinine Clearance 112 mL/min (70-130); Calcium 9.9 mg/dL (7.8-10.44); Carbon Dioxide 27 mmol/L (23-31); Chloride 96 mmol/L (98-107); Estimated GFR-MDRD Greater than 90; Glucose 184 mg/dL (80-115); Potassium 3.2 mmol/L (3.5-5.1); Sodium 134 mmol/L (136-145)
[2019-01-05 12:51] LABS: Band 4 % (5-11); Lymphocytes 16 % (21-51); MDiff Complete? YES; Monocytes 10 % (0-10); Neutrophil 70 % (42-75); RBC Morphology Normal
[2019-01-05] MEDS: Atorvastatin Calcium 20 MG TAB PO SCH (20:10)
[2019-01-05] MEDS: Donepezil HCl 5 MG TAB PO SCH (20:10)
[2019-01-06] MEDS: Haloperidol Lactate 5 MG/ML VIAL IM PRN ×2 (00:49→04:58)
[2019-01-06] MEDS: Labetalol HCl 100 MG/20 ML VIAL SLOW IVP PRN (03:44)
[2019-01-06] MEDS: 1/2 NS w/KCL 20 mEq 1,000 ML IV SCH (03:59)
[2019-01-06 06:10] LABS: #Eosinphils 0.4 thou/uL (0.0-0.7); #Lymphocytes 2.9 thou/uL (1.20-3.40); #Monocytes 1.9 thou/uL (0.11-0.59); #Neutrophils 14.3 thou/uL (1.40-6.50); %Basophils 0.1 % (0.0-1.0); %Eosinophils 2.2 % (0.0-10.0); %Lymphocytes 15.1 % (21.0-51.0); %Monocytes 9.7 % (0.0-10.0); Hemoglobin 15.1 g/dL (14.0-18.0); Mean Corpuscular HGB CONC 32.5 g/dL (32.0-36.0); Mean Corpuscular Hemoglobin 29.9 pg (27.0-31.0); Mean Platelet Volume 9.3 fL (7.4-10.4); Platelet Count 259 thou/uL (130-400); RBC Distribution Width 12.5 % (11.5-14.5); Red Blood Cell (RBC) Count 5.06 mill/uL (4.70-6.10); White Blood Cell (WBC) Count 19.6 thou/uL (4.8-10.8)
[2019-01-06] MEDS: HumaLOG 300 UNITS/3 ML VIAL SC PRN ×2 (06:41→13:05)
[2019-01-06 06:57] LABS: Anion Gap 13 mmol/L (10-20); BUN (Urea Nitrogen) 7 mg/dL (8.4-25.7); Calc. Creatinine Clearance 106 mL/min (70-130); Calcium 9.7 mg/dL (7.8-10.44); Carbon Dioxide 29 mmol/L (23-31); Chloride 97 mmol/L (98-107); Estimated GFR-MDRD Greater than 90; Glucose 185 mg/dL (80-115); Potassium 3.3 mmol/L (3.5-5.1); Sodium 136 mmol/L (136-145)
[2019-01-06] MEDS ORDERED: Carvedilol 6.25 MG TAB PO SCH (08:00)
[2019-01-06] MEDS ORDERED: Carvedilol 3.125 MG TAB PO SCH (08:02)
[2019-01-06 08:41] LABS: Magnesium 1.5 mg/dL (1.6-2.6); Phosphorus 3.3 mg/dL (2.3-4.7)
[2019-01-06] MEDS ORDERED: Potassium Chloride 20 MEQ TAB PO SCH (09:00)
[2019-01-06] MEDS: Folic Acid 1 MG TAB PO SCH (09:16)
[2019-01-06] MEDS: Thiamine 100 MG TAB PO SCH (09:16)
[2019-01-06] MEDS: Lisinopril 20 MG TAB PO SCH (09:16)
[2019-01-06] MEDS: Famotidine 20 MG TAB PO SCH (09:16)
[2019-01-06] MEDS: Aspirin 81 mg Enteric Coated Tablet PO SCH (09:16)
[2019-01-06] MEDS: Montelukast Sodium 10 mg Tablet PO SCH (09:16)
[2019-01-06] MEDS: Carvedilol 3.125 MG TAB PO SCH (09:33)
[2019-01-06] MEDS: cefTRIAXone\\ROCEPHIN 2 GM in Sodium Chloride 0.9% 100 ML IVPB SCH (13:06)
--- NOTE | 2019-01-06 13:19 | DIS ---
DATE OF ADMISSION: 01/03/2019 DATE OF DISCHARGE: 01/06/2019 PRIMARY CARE PHYSICIAN: Dr. Lazaro Layton. DISCHARGE DISPOSITION: Alf Unit. PRIMARY DISCHARGE DIAGNOSES: 1. Acute encephalopathy, suspected from Wernicke-Korsakoff psychosis. 2. Leukocytosis of unclear etiology. 3. Hypokalemia and hypomagnesemia. 4. Elevated troponin on admission due to type 2 CA secondary to demand ischemia. SECONDARY DISCHARGE DIAGNOSES: 1. Dementia. 2. Chronic alcohol abuse. 3. Hypertension. 4. Dyslipidemia. 5. Diabetes type 2. 6. Diabetic neuropathy. 7. Gastroesophageal reflux disease. PRIMARY PROCEDURE/OPERATION: None. RADIOLOGICAL INVESTIGATION: CT [facility] [place] reported as no evidence of any acute process. MRI brain reported as no acute intracranial process. Chest x-ray reported as no acute cardiopulmonary process. Echocardiography showed diastolic dysfunction, mild. Repeat CT brain negative. SIGNIFICANT LABORATORY DATA: WBC 19.6, hemoglobin 15.1, and platelets are 259. Sodium 137, potassium 3.3, BUN 7, creatinine 0.74, calcium 9.7, phosphorus 3.3, magnesium 1.5. Troponin 0.030 and then negative. Urinalysis unremarkable. Urine drug screen negative. Serum drug screen negative. All blood and urine culture negative. DISCHARGE MEDICATIONS: 1. Lipitor 20 mg daily. 2. Gabapentin 300 mg b.i.d. 3. Glipizide 5 mg p.o. daily. 4. Listril 20 mg p.o. daily. 5. Metformin 500 mg b.i.d. 6. Singulair 10 mg daily. 7. Ranitidine 150 mg p.o. b.i.d. 8. Tramadol 50 mg t.i.d. p.r.n. 9. Aspirin 81 mg p.o. daily. 10. Coreg 25 mg b.i.d. 11. Catapres patch 0.3 mg every week. 12. Aricept 5 mg p.o. nightly. 13. Folic acid 1 mg daily. 14. Seroquel 50 mg at bedtime. 15. Thiamine 100 mg p.o. daily. CONTRAINDICATION: None. CODE STATUS: DNR. INPATIENT DIRECTOR OF ACCOUNTS PAYABLE: Dr. Alvarado Partida, Neurologist was following while in hospital. TEST RESULTS PENDING ON DISCHARGE: None. ALLERGIES: NO KNOWN DRUG ALLERGIES. DISCHARGE PLAN: Posthospital, the patient is planned for discharge to residential home. Subsequently, the patient will follow up with primary care physician. HOSPITAL COURSE: A 68-year-old male, who initially came to emergency room on January 02, 2019 for altered mental status. The patient was restless. He was evaluated in the emergency room with CT brain which was negative. CT [facility] [place] was also negative. Initial troponin was indeterminant and he had leukocytosis. So, he was admitted to Stroke Floor for rule out CVA. He was given empiric Rocephin in the emergency room for leukocytosis of unclear etiology. His chest x-ray was normal and urinalysis was unremarkable. The patient's condition did not improve next day, so status was changed to inpatient status. MRI brain, echocardiography was obtained as a part of stroke workup that came back negative. Neurology saw this patient and they were thinking Wernicke-Korsakoff psychosis from alcohol. The patient was treated with folic acid and thiamine while in hospital and his condition improved. WBC count remained high, but he did not have any fever, so we discontinued antibiotic on discharge. His abnormal electrolytes, potassium, and magnesium was replaced while in hospital. PHYSICAL EXAMINATION: GENERAL: I have seen and examined the patient at bedside today. VITAL SIGNS: Currently vital signs, temperature 98.2, pulse 73, respiratory rate 16, saturation 93%, and blood pressure 152/75. Weight 172 pounds. GENERAL: The patient is alert and awake, in no obvious acute distress. HEENT: Normocephalic and atraumatic. LUNGS: Clear to auscultation without any rhonchi or rales. NECK: No JVD. CARDIAC: S1 and S2. Regular without any murmur. ABDOMEN: Soft and benign. EXTREMITIES: No edema. NEUROLOGIC: Nonfocal examination. The patient has poor p.o. intake and that is why we reduced glipizide to 5 mg only and we reduced gabapentin to 300 mg b.i.d. We added a new medication as above, otherwise the patient is medically stable for discharge today. Paperwork for discharge done. Discharge medication reconciliation done. TIME SPENT: Total time spent on discharge day, 32 minutes. Job ID: [id number]
[2019-01-06 15:36] VITALS: BP 143/98; TEMP 97.9
== END 2019-01-06 16:21 | DRG 640 ==
LOC: ERS 19:43 → 2SE 01-03 01:05
PROVIDERS: ADMIT Hospitalist; ATTEND Hospitalist
DX: E51.2 Wernicke's encephalopathy (principal); I21.A1 Myocardial infarction type 2; F04 Amnestic disorder due to known physiological condition; D72.829 Elevated white blood cell count, unspecified; E87.6 Hypokalemia; E83.42 Hypomagnesemia; F03.90 Unspecified dementia, unspecified severity, without behavioral disturbance, psychotic disturbance, mood disturbance, and anxiety; F10.10 Alcohol abuse, uncomplicated; I10 Essential (primary) hypertension; E78.5 Hyperlipidemia, unspecified; E11.9 Type 2 diabetes mellitus without complications; K21.9 Gastro-esophageal reflux disease without esophagitis; E11.40 Type 2 diabetes mellitus with diabetic neuropathy, unspecified; Z79.4 Long term (current) use of insulin
CPT/HCPCS: 36415; 36416; 70450; 70496; 70498; 70551; 71045; 80048; 80053; 80306; 80307; 81001; 81003; 82550; 82553; 82607; 83690; 83735; 84100; 84207; 84425; 84443; 84484; 85025; 87040; 87086; 93005; 93306; 96365; 96367; J0360; J0696; J1200; J1630; J2060; J3370; J3411; J3480; J3486; J3490; J7042; J7050; Q9966